=== PATIENT | male | born 1950 | race Caucasian/White ===

== ENCOUNTER 2019-07-21 19:59 | Inpatient (IN) | payer OTHER, BC ==
[2019-07-21] MEDS ORDERED: NA CHLORIDE 0.9% 0 ML ONE (20:40)
[2019-07-21 20:45] LABS: Absolute Lymphocytes (CBC) 0.4 K/uL (0.7-4.9); Basophils % 0.5 % (0-1.3); Lymphocytes % 3.7 % (15.3-44.8); MPV 6.9 fL (7.6-11.3); RBC Red Blood Cell Count 2.95 M/uL (4.33-5.43)
--- NOTE | 2019-07-21 20:48 | RAD REPORT ---
EXAM DESCRIPTION: RAD - Chest Single View - 07/21/2019 8:42 pm CLINICAL HISTORY: COPD;Fever Chest pain. COMPARISON: Chest Pa And Lat (2 Views) dated 06/24/2019 FINDINGS: Portable technique limits examination quality. The lungs are grossly clear. The heart is moderately enlarged in size. No displaced fractures. IMPRESSION: Moderate cardiomegaly.
[2019-07-21 21:06] LABS: ALT/SGPT 70 U/L (12-78); AST/SGOT 43 U/L (15-37); Albumin 2.6 g/dL (3.4-5.0); Alkaline Phosphatase 67 U/L (45-117); BUN Blood Urea Nitrogen 26 mg/dL (7-18); Bicarbonate 22 mmol/L (21-32); Bilirubin Direct 0.3 mg/dL (0-0.2); Bilirubin Total 0.7 mg/dL (0.2-1.0); Glucose Level 168 mg/dL (74-106); Lipase 69 U/L (73-393); Potassium 4.2 mmol/L (3.5-5.1); Protein, Total 6.8 g/dL (6.4-8.2); Sodium Level 136 mmol/L (136-145); Troponin (Emerg Dept Use Only) < 0.02 ng/mL (0.0-0.045)
[2019-07-21 21:14] LABS: Protime INR 1.31
[2019-07-21 22:16] LABS: Blood Morphology Comment NOT SEEN (NOT SEEN); Platelet Estimate ADEQ; Urine White Blood Cell Casts OK
[2019-07-21] MEDS ORDERED: NA CHLORIDE 0.9% 1,000 ML ONE (23:08)
[2019-07-21] MEDS ORDERED: NA CHLORIDE 0.9% 500 ML ONE (23:09)
[2019-07-21 23:31] LABS: Urine Blood 2+ (NEG); Urine Glucose NEGATIVE (NEG); Urine Protein 2+ (NEG); Urine Specific Gravity 1.015 (1.005-1.030)
[2019-07-21] MEDS ORDERED: CEFTRIAXONE/SWI 1gm 1 GM/10 ML SYR ONE (23:41)
--- NOTE | 2019-07-21 23:43 | ER ---
Nurse's Notes [facility] Name: Chandan Ojeda Age: 69 yrs Sex: Male : 1950 Arrival Date: 07/21/2019 Time: 20:06 Bed 24 Private MD: Diagnosis: Urinary tract infection, site not specified;Dehydration;Weakness Presentation: 07/21 20:07 Presenting complaint: EMS states: Pt has fever at 102F which just started today. Pt ca1 also c/o nausea and vomiting. Transition of care: patient was not received from another setting of care. Onset of symptoms was July 21, 2019. Risk Assessment: Do you want to hurt yourself or someone else? Patient reports no desire to harm self or others. Initial Sepsis Screen: Does the patient meet any 2 criteria? Temp <36.0*C (96.8*F)) or > 38.3*C (100.9*F). HR > 90 bpm. Yes Does the patient have a suspected source of infection? Yes: Dysuria/Frequency/Urgency/UTI. Care prior to arrival: Medication(s) given: zofran 4 mg, IV initiated. 20 GA, in the right antecubital area, Glucose check: 162 Oxygen administered. via nasal cannula. 20:07 Method Of Arrival: EMS: [facility] ca1 20:07 Acuity: INES 2 ca1 Triage Assessment: 20:12 General: Appears in no apparent distress. uncomfortable, Behavior is calm, cooperative, ca1 appropriate for age. Pain: Denies pain. Historical: - Allergies: 20:12 No Known Allergies; ca1 - PMHx: 20:12 Diabetes - NIDDM; Hypertension; Hyperlipidemia; COPD; ca1 - Immunization history:: Adult Immunizations up to date, Flu vaccine is not up to date. It has been more than one year since last vaccine. - Social history:: Smoking status: Patient/guardian denies using tobacco. - Ebola Screening: : Patient negative for fever greater than or equal to 101.5 degrees Fahrenheit, and additional compatible Ebola Virus Disease symptoms Patient denies exposure to infectious person Patient denies travel to an Ebola-affected area in the 21 days before illness onset No symptoms or risks identified at this time. - Family history:: not pertinent. - Hospitalizations: : Patient was recently seen at. Screenin:30 Abuse screen: Denies threats or abuse. Denies injuries from another. Nutritional ca1 screening: No deficits noted. Tuberculosis screening: No symptoms or risk factors identified. Fall Risk IV access (20 points). Ambulatory Aid- Crutches/Cane/Walker (15 pts). Gait- Weak (10 pts.). Total Jacobson Fall Scale indicates High Risk Score (45 or more points). Fall prevention measures have been instituted. Side Rails Up X 2 Placed Close to Nursing Station Family Present and informed to notify staff if the need to leave the bedside As available patient and family educated on Fall Prevention Program and Strategies. Assessment: 20:30 General: Appears in no apparent distress. comfortable, Behavior is calm, cooperative, ca1 appropriate for age. General: Reports fever for 0-12 hours. Pain: Denies pain. Neuro: Level of Consciousness is awake, alert, obeys commands, Oriented to person, place, time, situation, Appropriate for age. Cardiovascular: Heart tones S1 S2 present Capillary refill < 3 seconds Patient's skin is warm and dry. Pulses are all present. Edema is 2+ to left midcalf, left ankle, left foot, left toes, right midcalf, right ankle, right foot and right toes Rhythm is sinus tachycardia. Respiratory: Airway is patent Respiratory effort is even, unlabored, Respiratory pattern is regular, symmetrical, Breath sounds are clear bilaterally. GI: Abdomen is round non-distended, obese, Bowel sounds present X 4 quads. Abd is soft and non tender X 4 quads. Reports nausea, vomiting. : Reports urgency, urinary frequency. EENT: No deficits noted. No signs and/or symptoms were reported regarding the EENT system. Derm: Skin is intact, is healthy with good turgor, Skin is pink, warm \T\ dry. Musculoskeletal: Circulation, motion, and sensation intact. Capillary refill < 3 seconds, Range of motion: intact in all extremities, Swelling present in right foot and left foot. 21:30 Reassessment: Patient appears in no apparent distress at this time. Patient and/or ca1 family updated on plan of care and expected duration. Pain level reassessed. Patient is alert, oriented x 3, equal unlabored respirations, skin warm/dry/pink. 22:01 Reassessment: 's Number Ynes: [phone]. Please call for updates. ca1 22:38 Reassessment: patient put on temporary NPO until CT scan results comes back. updated rv patient and instructed. plan of care explained. Vital Signs: 20:12 BP 140 / 71; Pulse 109; Resp 20 S; Temp 102.9(O); Pulse Ox 96% on 2 lpm NC; Weight ca1 138.35 kg (R); Height 6 ft. 2 in. (187.96 cm) (R); Pain 0/10; 21:30 BP 133 / 51; Pulse 103; Resp 23; Pulse Ox 97% on 2 lpm NC; ca1 22:37 BP 133 / 53; Pulse 102; Resp 24; Temp 100.2(O); Pulse Ox 99% on R/A; rv 23:00 BP 117 / 60; Pulse 102; Resp 21; Temp 100.2(O); Pulse Ox 99% on 2 lpm NC; rv 23:30 BP 127 / 65; Pulse 114; Resp 29; Pulse Ox 99% on 2 lpm NC; rv 07/22 00:00 BP 111 / 63; Pulse 92; Resp 23; Pulse Ox 100% on 2 lpm NC; rv 01:09 BP 118 / 60; Pulse 90; Resp 23; Temp 99.3; Pulse Ox 100% on R/A; rv 07/21 20:12 Body Mass Index 39.16 (138.35 kg, 187.96 cm) ca1 ED Course: 07/21 20:06 Patient arrived in ED. ca1 20:10 Triage completed. ca1 20:10 Nickolas Davies MD is Attending Physician. rn 20:12 Arm band placed on right wrist. ca1 20:27 Gayathri Enrique, ANA is Primary Nurse. ca1 20:30 Patient has correct armband on for positive identification. Bed in low position. Call ca1 light in reach. Side rails up X2. equipment monitor phototypesetting on. Pulse ox on. NIBP on. 20:30 Maintain EMS IV. Dressing intact. Good blood return noted. Site clean \T\ dry. Gauge \T\ ca 1 site: g20 at [facility]. 20:30 No provider procedures requiring assistance completed. ca1 20:42 Chest Single View XRAY In Process Unspecified. EDMS 20:53 Initial lab(s) drawn, by manager labor relations, sent to lab. EKG done, by ED staff, reviewed by jpMitchell Davies MD Flu and/or RSV swab sent to lab. Oxygen administration via nasal cannula \T\ 2L/min. 22:02 CT Abd/Pelvis - IV Contrast Only In Process Unspecified. EDMS 23:42 Vipin King MD is Hospitalizing Provider. rn 07/22 01:07 Patient admitted, IV remains in place. rv Administered Medications: 07/21 20:40 Drug: NS 0.9% 1000 ml Route: IV; Rate: 1000 ml; Site: right antecubital; ca1 22:36 Follow up: IV Status: Completed infusion rv 23:26 Follow up: IV Status: Completed infusion; IV Intake: 1000ml rv 23:15 Drug: NS 0.9% 500 ml Route: IV; Rate: bolus; Site: right forearm; rv 07/22 00:41 Follow up: IV Status: Completed infusion rv 07/21 23:46 Drug: Rocephin - (cefTRIAXone) 1 grams Route: IVPB; Infused Over: 30 mins; Site: right rv forearm; 07/22 00:41 Follow up: IV Status: Completed infusion rv Point of Care Testing: Blood Glucose: 07/21 20:45 Blood Glucose: 184 mg/dL; omar Ranges: Intake: 23:26 IV: 1000ml; Total: 1000ml. rv Outcome: 23:43 Decision to Hospitalize by Provider. rn 07/22 01:06 Admitted to Tele accompanied by tech, via stretcher, room 425, with chart, Report rv called to ERNST PEREZ Condition: good Instructed on the need for admit. 01:08 Patient left the ED. rv Signatures: Dispatcher [employer] EDMS Nickolas Davies MD MD rn Vicente, Ronaldo RN RN rv Yared Early jp3 Gayathri Enrique RN RN ca1 Corrections: (The following items were deleted from the chart) 01:10 07/21 23:00 BP 117 / 60; Pulse 102bpm; Resp 21bpm; Pulse Ox 99% 2 lpm Nasal Cannula; rv rv
--- NOTE | 2019-07-21 23:44 | EDPHYS ---
Physician Documentation [facility] Name: Chandan Ojeda Age: 69 yrs Sex: Male : 1950 Arrival Date: 07/21/2019 Time: 20:06 Bed 24 Private MD: ED Physician Nickolas Davies HPI: 07/21 20:47 This 69 yrs old Male presents to ER via EMS with complaints of Fever. rn 20:47 The patient reports fever, that was measured at 102 degrees Fahrenheit. Onset: The rn symptoms/episode began/occurred today. Modifying factors: there are no obvious modifying factors. Severity of symptoms: At their worst the symptoms were mild in the emergency department the symptoms are unchanged. The patient has not experienced similar symptoms in the past. Reports 2 weeks s/p partial nephrectomy for kidney cancer, no problems since then other than urinary symptoms, had indwelling ruiz for 2 weeks. + fever to 102. + nausea. No diarrhea. No chest pain or cough. Has COPD. Reports mild abd pain. . Historical: - Allergies: 20:12 No Known Allergies; ca1 - PMHx: 20:12 Diabetes - NIDDM; Hypertension; Hyperlipidemia; COPD; ca1 - Immunization history:: Adult Immunizations up to date, Flu vaccine is not up to date. It has been more than one year since last vaccine. - Social history:: Smoking status: Patient/guardian denies using tobacco. - Ebola Screening: : Patient negative for fever greater than or equal to 101.5 degrees Fahrenheit, and additional compatible Ebola Virus Disease symptoms Patient denies exposure to infectious person Patient denies travel to an Ebola-affected area in the 21 days before illness onset No symptoms or risks identified at this time. - Family history:: not pertinent. - Hospitalizations: : Patient was recently seen at. ROS: 20:47 Constitutional: + fever and chills Eyes: Negative for injury, pain, redness, and overnight caregiver, ENT: Negative for injury, pain, and discharge, Neck: Negative for injury, pain, and swelling, Cardiovascular: Negative for chest pain, palpitations, and edema, Respiratory: Negative for shortness of breath, cough, wheezing, and pleuritic chest pain, Abdomen/GI: + abd pain and nausea MS/Extremity: Negative for injury and deformity, Skin: Negative for injury, rash, and discoloration, Neuro: Negative for headache, numbness, tingling, and seizure. Exam: 20:47 Constitutional: This is a well developed, well nourished patient who is awake, alert, rn and in no acute distress. Head/Face: Normocephalic, atraumatic. Eyes: Pupils equal round and reactive to light, extra-ocular motions intact. Lids and lashes normal. Conjunctiva and sclera are non-icteric and not injected. Cornea within normal limits. Periorbital areas with no swelling, redness, or edema. ENT: dry MM Cardiovascular: Irregular, tachycardic Respiratory: Mild tachypnea, faint wheezing, no retractions, speaking full sentences Abdomen/GI: soft, mild mid and upper abd tenderness MS/ Extremity: Pulses equal, no cyanosis. Neurovascular intact. Full, normal range of motion. Equal circumference. 2+ pitting edema bilateral lower ext Neuro: Awake and alert, GCS 15, oriented to person, place, time, and situation. Cranial nerves II-XII grossly intact. Motor strength 5/5 in all extremities. Sensory grossly intact. 22:08 ECG was reviewed by the Attending Physician. rn Vital Signs: 20:12 BP 140 / 71; Pulse 109; Resp 20 S; Temp 102.9(O); Pulse Ox 96% on 2 lpm NC; Weight ca1 138.35 kg (R); Height 6 ft. 2 in. (187.96 cm) (R); Pain 0/10; 21:30 BP 133 / 51; Pulse 103; Resp 23; Pulse Ox 97% on 2 lpm NC; ca1 22:37 BP 133 / 53; Pulse 102; Resp 24; Temp 100.2(O); Pulse Ox 99% on R/A; rv 23:00 BP 117 / 60; Pulse 102; Resp 21; Temp 100.2(O); Pulse Ox 99% on 2 lpm NC; rv 23:30 BP 127 / 65; Pulse 114; Resp 29; Pulse Ox 99% on 2 lpm NC; rv 07/22 00:00 BP 111 / 63; Pulse 92; Resp 23; Pulse Ox 100% on 2 lpm NC; rv 01:09 BP 118 / 60; Pulse 90; Resp 23; Temp 99.3; Pulse Ox 100% on R/A; rv 07/21 20:12 Body Mass Index 39.16 (138.35 kg, 187.96 cm) ca1 MDM: 07/21 20:10 Patient medically screened. rn 23:38 Differential diagnosis: viral Infection, URI, pneumonia UTI. Data reviewed: vital rn signs, nurses notes, lab test result(s), EKG, radiologic studies, CT scan, plain films, and as a result, I will. Counseling: I had a detailed discussion with the patient and/or guardian regarding: the historical points, exam findings, and any diagnostic results supporting the discharge/admit diagnosis, lab results, radiology results, the need for further work-up and treatment in the hospital. Response to treatment: the patient's symptoms have mildly improved after treatment, and as a result, I will admit patient. Admission orders: after a detailed discussion of the patient's condition and case, the admit orders are written by me. ED course: Pt with UTI, still feels weak, offered outpatient treatment, patient states doesn't feel well and doesn't think he will do ok at home. CT shows postoperative changes and on reexamination no abd pain or CVAT. Called Dr. King and admitted patient.. 07/21 20:18 Order name: Urine Culture 07/21 20:18 Order name: Basic Metabolic Panel; Complete Time: :34 07/21 20:18 Order name: Blood Culture Adult (2) 07/21 20:18 Order name: CBC with Diff; Complete Time: :38 07/21 20:18 Order name: Lactate; Complete Time: :34 07/21 20:18 Order name: LFT's; Complete Time: :34 07/21 20:18 Order name: Lipase; Complete Time: :34 07/21 20:18 Order name: Procalcitonin; Complete Time: 22:38 07/21 20:18 Order name: Protime (+inr); Complete Time: 22:38 07/21 20:18 Order name: Ptt, Activated; Complete Time: :38 07/21 20:18 Order name: Troponin (emerg Dept Use Only); Complete Time: 21:34 07/21 20:18 Order name: Urine Microscopic Only 07/21 20:18 Order name: Flu; Complete Time: :34 07/21 20:45 Order name: Glucose, Ancillary Testing EDMS 07/21 20:18 Order name: IV Start; Complete Time: 20:29 rn 07/21 20:18 Order name: Chest Single View XRAY; Complete Time: 21:34 rn 07/21 20:18 Order name: Accucheck; Complete Time: 20:41 rn 07/21 20:18 Order name: Cardiac monitoring; Complete Time: 20:29 rn 07/21 20:18 Order name: EKG - Nurse/Tech; Complete Time: 20:53 rn 07/21 20:18 Order name: IV Saline Lock - Large Bore; Complete Time: 20:29 rn 07/21 20:18 Order name: Labs collected and sent; Complete Time: 20:29 rn 07/21 20:18 Order name: O2 Per Protocol; Complete Time: 20:29 rn 07/21 20:18 Order name: O2 Sat Monitoring; Complete Time: 20:29 07/21 20:19 Order name: CT Abd/Pelvis - IV Contrast Only 07/21 22:17 Order name: CBC Smear Scan; Complete Time: 22:38 EDLA 07/21 23:28 Order name: Urine Dipstick--Ancillary (enter results); Complete Time: 23:33 mw2 EC:08 Rate is 109 beats/min. Rhythm is irregularly irregular. QRS [employer] is Normal. MO interval rn is normal. QRS interval is normal. QT interval is normal. No Q waves. T waves are Normal. No ST changes noted. Clinical impression: Atrial Fibrillation. Interpreted by me. Reviewed by me. Administered Medications: 20:40 Drug: NS 0.9% 1000 ml Route: IV; Rate: 1000 ml; Site: right antecubital; ca1 22:36 Follow up: IV Status: Completed infusion rv 23:26 Follow up: IV Status: Completed infusion; IV Intake: 1000ml rv 23:15 Drug: NS 0.9% 500 ml Route: IV; Rate: bolus; Site: right forearm; rv 07/22 00:41 Follow up: IV Status: Completed infusion rv 07/21 23:46 Drug: Rocephin - (cefTRIAXone) 1 grams Route: IVPB; Infused Over: 30 mins; Site: right rv forearm; 07/22 00:41 Follow up: IV Status: Completed infusion rv Point of Care Testing: Blood Glucose: 07/21 20:45 Blood Glucose: 184 mg/dL; jp3 Ranges: Critical Glucose Levels:Adult <50 mg/dl or >400 mg/dl <40 mg/dl or >180 mg/dl Disposition: 07/21/19 23:43 Hospitalization ordered by Vipin King for Inpatient Admission. Preliminary diagnosis are Urinary tract infection, site not specified, Dehydration, Weakness. - Bed requested for Telemetry/MedSurg (Inpatient). - Status is Inpatient Admission. rv - Condition is Stable. - Problem is new. - Symptoms have improved. UTI on Admission? Yes Signatures: Dispatcher [employer] EDMS Nickolas Davies MD MD rn Garcia, Cindy, RN RN cg Chad Hendrix, ANA PEREZ rv Acob, Gayathri RN RN ca1 Corrections: (The following items were deleted from the chart) 22:08 20:47 Constitutional: This is a well developed, well nourished patient who is awake, rn alert, and in no acute distress. Head/Face: Normocephalic, atraumatic. Eyes: Pupils equal round and reactive to light, extra-ocular motions intact. Lids and lashes normal. Conjunctiva and sclera are non-icteric and not injected. Cornea within normal limits. Periorbital areas with no swelling, redness, or edema. ENT: dry MM Cardiovascular: Regular, tachycardic Respiratory: Mild tachypnea, faint wheezing, no retractions, speaking full sentences Abdomen/GI: soft, mild mid and upper abd tenderness MS/ Extremity: Pulses equal, no cyanosis. Neurovascular intact. Full, normal range of motion. Equal circumference. 2+ pitting edema bilateral lower ext Neuro: Awake and alert, GCS 15, oriented to person, place, time, and situation. Cranial nerves II-XII grossly intact. Motor strength 5/5 in all extremities. Sensory grossly intact. rn 07/22 00:34 07/21 23:43 Hospitalization Ordered by Vipin King MD for Inpatient Admission. cg Preliminary diagnosis is Urinary tract infection, site not specified; Dehydration; Weakness. Bed requested for Telemetry/MedSurg (Inpatient). Status is Inpatient Admission. Condition is Stable. Problem is new. Symptoms have improved. UTI on Admission? Yes. ana 07/22 01:08 00:34 07/21/2019 23:43 Hospitalization Ordered by Vipin King MD for Inpatient rv Admission. Preliminary diagnosis is Urinary tract infection, site not specified; Dehydration; Weakness. Bed requested for Telemetry/MedSurg (Inpatient). Status is Inpatient Admission. Condition is Stable. Problem is new. Symptoms have improved. UTI on Admission? Yes. cg
[2019-07-22 00:04] LABS: Urine Bacteria LOADED /HPF (NONE SEEN); Urine Culture Reflex Order NOT NEEDED
[2019-07-22] MEDS ORDERED: ONDANSETRON 4 MG/2 ML VIAL IV PRN (01:37)
[2019-07-22] MEDS ORDERED: ACETAMINOPHEN 500 MG TAB PO PRN (01:37)
[2019-07-22] MEDS: NA CHLORIDE 0.9% 1,000 ML IV SCH ×3 (02:05→20:44)
[2019-07-22 03:09] VITALS: BMI 40.1
[2019-07-22 07:57] LABS: MPV 7.3 fL (7.6-11.3)
[2019-07-22] MEDS ORDERED: CEFTRIAXONE 1 GM/NS 50 ML 1 GM/50 ML BAG IV SCH (09:00)
[2019-07-22] MEDS ORDERED: PNEUMOCOCCAL VACCINE 0.5 ML IMVAC ONE (09:00)
[2019-07-22] MEDS: CEFTRIAXONE/SWI 1gm 1 GM/10 ML SYR IV SCH ×2 (09:17→20:36)
[2019-07-22] MEDS: ENOXAPARIN 40 MG/0.4 ML SQ SCH (09:18)
--- NOTE | 2019-07-22 09:22 | EKG ---
Test Date: 2019-07-21 Test Time: 20:48:51 Supervisor: VICKI MEASUREMENT RESULTS: Intervals: Rate: 109 [place]: QRSD: 88 QT: 340 QTc: 457 [place]: P: [place]: QRS: 49 T: 99 INTERPRETIVE STATEMENTS: Atrial fibrillation with rapid ventricular response Septal infarct, age undetermined Abnormal ECG Compared to ECG 10/24/2004 17:42:00 Myocardial infarct finding now present Sinus rhythm no longer present Electronically Signed On 07-22-19 09:21:48 CDT by Emiliano Pham
--- NOTE | 2019-07-22 11:21 | RAD REPORT ---
EXAM DESCRIPTION: CT Abdomen and Pelvis With Intravenous Contrast CLINICAL HISTORY: The patient is 69 years old and is Male; 2 weeks s/p partial nephrectomy, fever, v omiting TECHNIQUE: Axial computed tomography images of the abdomen and pelvis with intravenous contrast. S agittal and coronal reformatted images were created and reviewed. This CT exam was performed using one or more of the following dose reduction techniques: automated exposure control, adjustment of t he mA and/or kV according to patient size, and/or use of iterative reconstruction technique. COMPARISON: No relevant prior studies available. FINDINGS: LUNG BASES: Unremarkable. No mass. No consolidation. ABDOMEN: LIVER: There is a diffuse decrease in hepatic parenchymal density, consistent with fatty infiltr ation. GALLBLADDER AND BILE DUCTS: No calcified stones. No ductal dilation. PANCREAS: The pancreas is atrophic. SPLEEN: Unremarkable. ADRENALS: Unremarkable. No mass. KIDNEYS AND URETERS: Postsurgical change of the right upper pole consistent with partial right n ephrectomy is noted. Suture line is present. Adjacent fluid, stranding, subcutaneous air along the ri ght kidney and right perinephric region is noted. Exophytic right renal cysts are present. The left k idney is normal. STOMACH AND BOWEL: Stomach is decompressed. The small bowel is normal in caliber. Stool is prese nt throughout the colon. There is no mucosal thickening or evidence of bowel obstruction. PELVIS: APPENDIX: The appendix is normal in caliber without surrounding inflammation. BLADDER: Unremarkable. No mass. REPRODUCTIVE: Unremarkable as visualized. ABDOMEN and PELVIS: INTRAPERITONEAL SPACE: Unremarkable. No free air. No significant fluid collection. BONES/JOINTS: Multilevel degenerative changes spine is present. SOFT TISSUES: Subcutaneous air along the right lower abdomen and pelvis is present. VASCULATURE: A retroaortic left renal vein is present. Atherosclerosis of the vasculature is not ed. No abdominal aortic aneurysm. LYMPH NODES: Unremarkable. No enlarged lymph nodes. IMPRESSION: Evidence of recent right partial nephrectomy with associated postoperative change. Fluid , stranding, subcutaneous air within the right perinephric region is noted, likely postsurgical. Smal l subcutaneous air along the right lateral abdominal wall extending into the pelvis is noted, also tariq stack postsurgical. Electronically signed by: Joana Luna MD 07/21/2019 10:22 PM CDT Due to temporary technical issues with the PACS/Fluency reporting system, reports are being signed by the in house radiologist as a courtesy to ensure prompt reporting. The interpreting radiologist is f ully responsible for the content of the report.
--- NOTE | 2019-07-22 11:23 | RAD REPORT ---
EXAM DESCRIPTION: USExtrem Venous W Compress Bil07/22/2019 10:41 am CLINICAL HISTORY: Bilateral leg swelling COMPARISON: none FINDINGS: The common femoral, superficial femoral, popliteal and posterior tibial veins bilaterally are compressible and demonstrate augmentation. Doppler demonstrates good flow. IMPRESSION: No evidence of deep venous thrombosis involving either lower extremity.
--- NOTE | 2019-07-22 11:23 | RAD REPORT ---
EXAM DESCRIPTION: US - Abdomen Exam Complete - 07/22/2019 10:30 am CLINICAL HISTORY: Abdominal pain COMPARISON: July 21, 2019 cat scan FINDINGS: The evaluation of the liver is limited without visualization of a gross abnormality. A gallstone is not seen. The gallbladder wall is not thickened. The biliary tree is normal caliber. The pancreas was not well visualized secondary overlying bowel gas but appears grossly normal. Partial right nephrectomy. The evaluation was limited. Ill-defined fluid surrounds the right kidney. Several right renal cystic masses seen on the CT scan are poorly visualized on this exam. Ill-defined fluid abuts the lateral aspect of the right kidney better seen on the CT scan The left kidney measures 11 centimeters with a normal echotexture. The spleen is poorly visualized The abdominal aorta and inferior vena cava appear unremarkable IMPRESSION: Partial right nephrectomy. Evaluation is limited. Ill-defined fluid surrounds the latera l aspect of the right kidney containing small amount of air. This all can be a postsurgical change or indicative of infection and should be correlated clinically. Follow-up CT examination would be helpf ul to assess improvement or worsening.
[2019-07-22 11:43] LABS: Platelet Estimate ADEQ
--- NOTE | 2019-07-22 19:07 | RAD REPORT ---
EXAM DESCRIPTION: US - Scrotum Testicles - 07/22/2019 6:49 pm CLINICAL HISTORY: scrotal redness/swelling/pain COMPARISON: None FINDINGS: Right testicle measures 3.3 x 2.8 x 3.8 centimeters. Echotexture is homogeneous. Normal bl ood flow Left testicle measures 3.8 x 3.3 x 3.2 centimeters. Echotexture is homogeneous. Mildly increased bloo d flow The epididymides are normal in size and echotexture. Normal blood flow is seen. Small bilateral hydroceles. Scrotal skin thickening IMPRESSION: Mildly increased blood flow left testicle may indicate mild orchitis Small bilateral hydroceles Scrotal skin thickening
[2019-07-22] MEDS ORDERED: ALBUTEROL 2.5 MG/3 ML NEB SOL IH PRN (21:12)
--- NOTE | 2019-07-22 21:20 | P.HP ---
Certification for Inpatient Patient admitted to: Inpatient With expected LOS: >2 Midnights Practitioner: I am a practitioner with admitting privileges, knowledge of patient current condition, hospital course, and medical plan of care. Services: Services provided to patient in accordance with Admission requirements found in Title 42 Section 412.3 of the Code of Federal Regulations Patient History Date of Service: 07/22/19 Reason for admission: HIGH FEVER History of Present Illness: MR. PATEL HAD RENAL CANCER REMOVED BY DR. GIBBONS ON RSIDE. HE HAD CINTRON UNTIL ABOUT 3 DAYS AGO. HIS CINTRON WAS TAKEN OUT BUT HE HAD HIGH FEVER. HE IS FOUND TO HAVE UTI, POSSIBLY PYELONEPHRITIS. HE IS OBESE DIABETIC WITH COPD. Allergies No Known Allergies Allergy (Unverified 07/22/19 00:50) Home medications list reviewed: Yes Home Medications: Albuterol Neb [Proventil 0.083% Neb Soln] 2.5 mg IH QIDP PRN 07/22/19 Aspirin 81 mg PO DAILY 07/22/19 Carvedilol 12.5 mg PO BID 07/22/19 Codeine/APAP [Tylenol W/Codeine #3 tab] 1 tab PO Q4HP PRN 07/22/19 Fluticasone/Umeclidin/Vilanter [Trelegy Ellipta 100-62.5-25] 1 puff IH DAILY Losartan Potassium 100 mg PO DAILY 07/22/19 Metformin HCl 1,000 mg PO BID 07/22/19 Pravastatin Sodium 40 mg PO BEDTIME 07/22/19 Triamterene/Hydrochlorothiazid [Triamterene-Hctz 37.5-25 mg Tb] 1 tab PO DAILY 07/22/19 glyBURIDE [Glyburide] 5 mg PO BID 07/22/19 - Past Medical/Surgical History Has patient received pneumonia vaccine in the past: No Diabetic: Yes -: NIDDM -: HTN -: HLD -: COPD -: kidney CA -: partial kidney removal - Social History Smoking Status: Former smoker Alcohol use: Yes CD- Drugs: No Caffeine use: No Place of Residence: Home Review of Systems 10-point ROS is otherwise unremarkable General: Weakness, Malaise Physical Examination - Vital Signs Temperature: 98.2 F Blood Pressure: 129/60 Pulse: 91 Respirations: 20 Pulse Ox (%): 94 - Physical Exam General: Alert, Acute distress, Mild distress, Obese HEENT: Atraumatic, PERRLA, Mucous membr. moist/pink, EOMI, Sclerae nonicteric Neck: Supple, 2+ carotid pulse no bruit, No LAD, Without JVD or thyroid abnormality Respiratory: Clear to auscultation bilaterally, Normal air movement Cardiovascular: Regular rate/rhythm, Normal S1 S2 Gastrointestinal: Normal bowel sounds, No tenderness Musculoskeletal: No tenderness Integumentary: No rashes Neurological: Normal gait, Normal speech, Normal strength at 5/5 x4 extr, Normal tone, Normal affect Lymphatics: No axilla or inguinal lymphadenopathy - Studies Laboratory Data (last 24 hrs) 07/21/19 20:36: PT 15.3 H, INR 1.31, APTT 30.5 07/21/19 20:26: WBC 10.6, Hgb 9.6 L, Hct 28.0 L, Plt Count 351 Microbiology Data (last 24 hrs): 07/21/19 20:36 Blood - Blood Anaerobic Blood Culture - Final 07/21/19 20:32 Nasopharnyx Influenza Type A Antigen Screen - Final 07/21/19 20:32 Nasopharnyx Influenza Type B Antigen Screen - Final Assessment and Plan - Problems (Diagnosis) (1) Pyelonephritis Current Visit: Yes Status: Acute Plan: POS OP, FROM [facility]. DR. GIBBONS DID SURGERY. IV ROCEPHIN. FU DAILY. (2) Cellulitis of scrotum Current Visit: Yes Status: Acute Plan: DR. HOPKINS CONSULTED. RESUME ABX. (3) COPD (chronic obstructive pulmonary disease) Current Visit: Yes Status: Chronic Plan: STABLE. RESUME HOME MEDS. Qualifiers: COPD type: emphysema (4) Diabetes Current Visit: Yes Status: Chronic Plan: RESUME METFORMIN CHECK LDL AND A1C. Qualifiers: Diabetes mellitus type: type 2 Diabetes mellitus complication status: with circulatory complication (5) Obesity Current Visit: Yes Status: Chronic Qualifiers: Obesity type: due to excess calories Obesity classification: adult class 2 (BMI 35 - 39.9) Serious obesity comorbidity presence: with serious comorbidity Body mass index: BMI 39.0-39.9 Qualified Code(s): E66.01 - Morbid (severe) obesity due to excess calories; Z68.39 - Body mass index (BMI) 39.0-39.9, adult (6) Edema Current Visit: Yes Status: Chronic Plan: VENOUS DOPPLER NEG. DIURETI PRN SALINE LOCK IV. - Advance Directives Does patient have a Living Will: Yes Does patient have a Durable POA for Healthcare: Yes
--- NOTE | 2019-07-22 21:49 | CON ---
History Of Present Illness: Patient is a 69-year-old gentleman who recently had a laparoscopic right partial nephrectomy by Dr. Garcia on July 04 approximately. He then developed 2 weeks of urinary retention, already had a chronic Zavaleta catheter. Zavaleta catheter was removed and complaint of no control of his bladder and bowels since the surgery and he has been having 102 fever yesterday and also associated with nausea and vomiting. Patient came in and had a CT scan done showing postoperative changes around the right kidney with evidence of right partial nephrectomy with some postoperative changes and fluid stranding and subcutaneous air within the right perinephric region is noted, most likely postsurgical and small subcutaneous air along the right lateral abdominal wall and into the pelvis, also most likely postsurgical. His UA is dirty consistent with urinary tract infection and positive nitrite, positive leukocyte esterase, and loaded with bacteria. Allergies: NO KNOWN DRUG ALLERGIES. Past Medical History: Gau-iwvajtz-[id number] diabetes mellitus, hypertension, hyperlipidemia, COPD. Immunizations: Up to date. Social History: No smoking. Denies tobacco use. No drug use. Review of Systems: A 10-point review of system as mentioned above. Physical Examination: General: Patient is in no acute distress. He is calm, cooperative. HEENT: Atraumatic, normocephalic. Neck: Supple. Chest: Clear. Abdomen: Soft, nontender. Well-healing scars on his abdomen. : His scrotum is swollen and edematous. Extremities: Legs appeared also swollen. Laboratory Data: Reviewed. UA as mentioned above. He has a normal white count of _, H and H 8.6 and 28, platelet count 351. Coags are normal. Chemistry shows sodium 136, potassium 4.2, chloride 105, carbon dioxide 22, BUN 26, creatinine 1.4, GFR 61, glucose 168, calcium is 8.4. AST is 43, slightly high. Assessment: He is status post right partial nephrectomy recently with postoperative changes on the right kidney and swollen scrotum. Plan: Get a scrotal ultrasound with Doppler. We will also check a postvoid residual with a bladder ultrasound. Consult Neurology for this what sounds like uncontrollable bowel movements and urinary leakage if pvr is normal. Also send stool for C diff possible, rule out C diff. We will await the urine culture results to come back to see what the patient has. We will treat him for UTI, see if the bladder urge incontinence gets better. Also check stool for C diff, we can treat that if needed to see if these will improve his issues. If not, he will need a neurological consultation since the claim that this all happened suddenly after the operation. GUILHERME/KASH Voice ID: [id number] Report ID: [id number] KRISTIN
[2019-07-22 21:52] VITALS: O2SAT 93
[2019-07-23 04:19] LABS: Absolute Lymphocytes (CBC) 0.7 K/uL (0.7-4.9); Basophils % 0.5 % (0-1.3); Hematocrit 25.4 % (39.6-49.0); Lymphocytes % 9.5 % (15.3-44.8); MPV 7.1 fL (7.6-11.3); RBC Red Blood Cell Count 2.65 M/uL (4.33-5.43)
[2019-07-23 04:31] LABS: Potassium 4.3 mmol/L (3.5-5.1)
[2019-07-23] MEDS ORDERED: METFORMIN HCL 500 MG TAB PO SCH (08:00)
[2019-07-23] MEDS ORDERED: glyBURIDE 2.5 MG TAB PO SCH (08:00)
[2019-07-23] MEDS: CEFTRIAXONE/SWI 1gm 1 GM/10 ML SYR IV SCH (08:12)
[2019-07-23] MEDS: ENOXAPARIN 40 MG/0.4 ML SQ SCH (08:12)
[2019-07-23] MEDS ORDERED: LOSARTAN POTASSIUM 50 MG TABLET PO SCH (09:00)
[2019-07-23] MEDS ORDERED: CARVEDILOL 12.5 MG TAB PO SCH (09:00)
[2019-07-23] MEDS ORDERED: HOME MED 1 EA UNK (Fluticasone/Umeclidin/Vilanter [Trelegy Ellipta 100-62.5-25] 1 PUFF) IH SCH (09:00)
[2019-07-23] MEDS ORDERED: ASPIRIN 81 MG CHEWABLE TABLET PO SCH (09:00)
[2019-07-23 12:35] VITALS: BP 145/65; TEMP 97.1
--- NOTE | 2019-07-23 17:46 | PN ---
Mr. Oejda is doing well today. His postvoid residual was over 600 last night, but I remember he re fused to have a Zavaleta catheter placed. He says when he stands up straight he is able to void a good stream. I will go ahead and start him on tamsulosin 0.4 mg b.i.d. as needed. His scrotal ultrasound shows left orchitis. He is on cefepime 250 b.i.d. for 10 days. His urine culture is growing gram-n egative rods. I would also recommend a scrotal support for the edematous scrotum and as mentioned, t he patient refused a Zavaleta catheter. GUILHERME/KASH Voice ID: [id number] Report ID: [id number]
[2019-07-23] MEDS ORDERED: ATORVASTATIN 10 MG TAB PO SCH (21:00)
--- NOTE | 2019-07-24 08:42 | EKG ---
Test Date: 2019-07-23 Test Time: 05:21:46 Circulation Librarian: UMER MEASUREMENT RESULTS: Intervals: Rate: 91 [place]: 164 QRSD: 88 QT: 346 QTc: 425 [place]: P: 63 [place]: 164 QRS: 38 T: 72 INTERPRETIVE STATEMENTS: Sinus rhythm with premature atrial complexes Nonspecific ST and T wave abnormality Abnormal ECG Compared to ECG 07/21/2019 20:48:51 Atrial premature complex(es) now present ST (T wave) deviation now present Atrial fibrillation no longer present Myocardial infarct finding no longer present Electronically Signed On 07-24-19 08:40:07 CDT by Emiliano Pham
--- NOTE | 2019-07-24 13:13 | DS ---
Date of Discharge: 07/23/2019 Final Diagnoses: Urinary tract infection and retention of urine. Secondary Diagnoses: 1. Right-sided renal cell cancer, partial nephrectomy, recently done by Dr. Garcia. 2. Chronic obstructive pulmonary disease. 3. Obesity. 4. Degenerative joint disease. 5. Lumbar spinal stenosis. Hospital Course: The patient is a 29-year-old gentleman with multiple medical problems whose ambulation is also poor because of his obesity, has gone through a recent surgery for right-sided partial nephrectomy for renal cell cancer by Dr. Garcia. His Zavaleta catheter was removed recently about 3 days ago. Since then , he developed UTI, comes to the hospital with high fever. I continued Rocephin IV which was started in ER. Rocephin should cover most of the E coli bacteria and I will be waiting for culture at this point. He was discharged home on Ceftin 250 mg p.o. b.i.d. He does have scrotum swelling also, which is slightly tender, but the swelling is from no signs of erythematous changes on the top and he possibly had that because the albumin, which could low in patient with surgical status. His creatinine improved to normal. A small hydrocele on both sides was noted on sonogram and left testicle have mild orchitis on the sonogram. His cultures are growing gram-negative bacilli. Identification is pending so far. Assessment And Plan: I suspect UTI and orchitis from sensitive bacteria at this point. He is clinically improved significantly on Rocephin and discharged home with Ceftin p.o. b.i.d. and he refuses to do Zavaleta catheter. He needs to have a Zavaleta catheter because he is retaining urine. Dr. Ruff has seen the patient. Other problems, continue same medication, no changes so far. Follow up in office in 2 weeks. CORNELIUS/KASH Voice ID: [id number] Report ID: [id number] KRISTIN
== END 2019-07-23 13:15 | disposition home health service (06) | DRG 690 ==
LOC: ER 19:59 → ERHOLD 07-22 00:16 → 4TH 07-22 00:57
PROVIDERS: ADMIT Internal Medicine; ATTEND Internal Medicine
DX: N39.0 Urinary tract infection, site not specified (principal); C64.1 Malignant neoplasm of right kidney, except renal pelvis; B96.20 Unspecified Escherichia coli [E. coli] as the cause of diseases classified elsewhere; Z90.5 Acquired absence of kidney; J44.9 Chronic obstructive pulmonary disease, unspecified; E66.9 Obesity, unspecified; Z68.39 Body mass index [BMI] 39.0-39.9, adult; M19.90 Unspecified osteoarthritis, unspecified site; M48.061 Spinal stenosis, lumbar region without neurogenic claudication; R33.9 Retention of urine, unspecified; N43.3 Hydrocele, unspecified; N45.2 Orchitis; E11.9 Type 2 diabetes mellitus without complications; I10 Essential (primary) hypertension; E78.5 Hyperlipidemia, unspecified
CPT/HCPCS: 36415; 71045; 74177; 76700; 76870; 80048; 80061; 80076; 81003; 81015; 82962; 83036; 83605; 83690; 84145; 84484; 85025; 85049; 85610; 85730; 87040; 87077; 87086; 87088; 87186; 87804; 93005; 93970; 96361; 96365; 97116; 97161; 97530; 99285; J0696; J1650; J7030; Q9967